=== PATIENT | female | born 1945 | race Caucasian/White ===

== ENCOUNTER 2022-12-17 23:57 | Inpatient (IN) | payer MEDICARE, MEDICAID ==
[~2022-12-17] VITALS: Ht 152.4 cm; Wt 64.9 kg
[~2022-12-17 23:57] MED LIST: ASPI-1497 PO; FAMO-135 MT; GLIP10TA10 PO; LEVO-65 MT; METF-416 PO; METO5TAB86 MT; METR500T PO; PIOG45TA5 PO; SIMV-46 PO; TELM40TA7 PO
[2022-12-18] MEDS ORDERED: DEXT 10% WATER 1,000 ML IV ONE (00:30)
[2022-12-18 01:06] LABS: CLARITY URINE CLEAR (CLEAR); COLOR URINE YELLOW (YELLOW); KETONES URINE TRACE (NEGATIVE); LEUKOCYTE ESTERASE URINE TRACE (NEGATIVE); NITRITE URINE NEGATIVE (NEGATIVE); OCCULT BLOOD URINE 2+ (NEGATIVE); PH URINE 5.5 (4.5-8.0); PROTEIN URINE NEGATIVE (NEGATIVE); SPECIFIC GRAVITY URINE 1.009 (1.005-1.030); UROBILINOGEN URINE 0.2 E.U./dL (0.2-1.0)
[2022-12-18 01:08] LABS: BASOPHILS % 0.3 % (0.0-2.0); EOSINOPHILS % 4.3 % (0.0-5.0); HEMATOCRIT. 28.3 % (36.0-48.0); HEMOGLOBIN. 9.7 g/dL (12.0-16.0); MEAN CORPUSCULAR HEMOGLOBIN 28.9 pg (28.0-32.0); MEAN CORPUSCULAR VOLUME 84.1 fL (81.0-99.0); MEAN PLATELET VOLUME 6.5 fl (7.4-10.4); MONOCYTES % 11.1 % (2.0-8.0); NEUTROPHILS % 75.3 % (40.0-76.0); PLATELET 218 x1000/uL (130-400); RED BLOOD CELL COUNT 3.37 mill/uL (4.2-5.4); RED CELL DISTRIBUTION WIDTH 15.7 % (11.6-14.6)
[2022-12-18 01:14] LABS: CHLORIDE 91 mEq/L (98-107)
[2022-12-18] MEDS ORDERED: DEXTROSE 50% WATER 50ML SYRINGE IV PRN (05:00)
[2022-12-18] MEDS ORDERED: IPRATROPIUM/ALBUTEROL 0.5-3(2.5)MG/3ML NEB HHN PRN (05:00)
[2022-12-18] MEDS ORDERED: DOCUSATE SODIUM 100MG CAPSULE PO PRN (05:00)
[2022-12-18] MEDS ORDERED: CLONIDINE 0.1MG TABLET PO PRN (05:00)
[2022-12-18] MEDS ORDERED: MAGNESIUM/ALUMINUM HYDROXIDE/SIMETHICONE 30ML UDC PO PRN (05:00)
[2022-12-18] MEDS ORDERED: GUAIFENESIN 200MG/10ML SUGAR FREE UDC PO PRN (05:00)
[2022-12-18] MEDS ORDERED: SODIUM CHLORIDE 0.9% 500 ML IV NR (06:00)
[2022-12-18] MEDS: INSULIN LISPRO 100 UNITS/ML SUBCUT SCH ×4 (08:20→20:18)
[2022-12-18 08:29] LABS: SODIUM URINE RANDOM 53 mEq/L
[2022-12-18] MEDS: MEGESTROL ACETATE 20MG TABLET PO SCH (09:00)
[2022-12-18] MEDS: PANTOPRAZOLE SODIUM 40 MG/VIAL IV SCH (09:00)
[2022-12-18] MEDS ORDERED: MEGESTROL ACETATE 400 MG/10 ML UDC PO SCH (09:00)
[2022-12-18] MEDS: BLOOD SUGAR DIAGNOSTIC STRIP TEST SCH ×4 (09:20→20:19)
[2022-12-18 16:51] VITALS: BP 131/70; PULSE 110; RESP 18; TEMP 98.1
[2022-12-18 20:00] VITALS: BP 102/59; PULSE 101; RESP 17; TEMP 97.2
[2022-12-19] VITALS: BP 107/52; PULSE 89; RESP 17; TEMP 97.1
[2022-12-19 06:09] LABS: BASOPHILS % 0.2 % (0.0-2.0); EOSINOPHILS % 3.3 % (0.0-5.0); HEMATOCRIT. 33.2 % (36.0-48.0); HEMOGLOBIN. 11.3 g/dL (12.0-16.0); LYMPHOCYTES % 9.1 % (20.0-50.0); MEAN CORPUSCULAR HEMOGLOBIN 28.5 pg (28.0-32.0); MEAN PLATELET VOLUME 6.2 fl (7.4-10.4); MONOCYTES % 10.2 % (2.0-8.0); NEUTROPHILS % 77.2 % (40.0-76.0); PLATELET 256 x1000/uL (130-400); RED BLOOD CELL COUNT 3.95 mill/uL (4.2-5.4); RED CELL DISTRIBUTION WIDTH 15.9 % (11.6-14.6)
[2022-12-19 07:01] LABS: CHLORIDE 97 mEq/L (98-107)
[2022-12-19 07:18] LABS: T4 FREE 1.46 ng/dL (0.76-1.46)
[2022-12-19 07:31] VITALS: BP 110/60; PULSE 87; RESP 17; TEMP 97.5
[2022-12-19 08:00] VITALS: BP 106/61; PULSE 65; RESP 18; TEMP 97.5
[2022-12-19] MEDS: MEGESTROL ACETATE 20MG TABLET PO SCH (09:00)
[2022-12-19] MEDS: BLOOD SUGAR DIAGNOSTIC STRIP TEST SCH ×4 (09:00→21:20)
[2022-12-19] MEDS: PANTOPRAZOLE SODIUM 40 MG/VIAL IV SCH (09:05)
[2022-12-19] MEDS: SODIUM CHLORIDE 0.9% 1,000 ML IV SCH ×2 (09:30→22:50)
[2022-12-19 12:00] VITALS: BP 118/65; PULSE 68; RESP 18; TEMP 97.1
[2022-12-19 16:00] VITALS: BP 110/67; PULSE 71; RESP 18; TEMP 97.6
[2022-12-19 20:00] VITALS: BP 94/58; PULSE 119; RESP 19; TEMP 97.7
[2022-12-19] MEDS: TRAMADOL 50MG TABLET PO PRN (20:36)
[2022-12-19] MEDS: ACETAMINOPHEN 325MG TABLET PO PRN (21:15)
[2022-12-19] MEDS: INSULIN LISPRO 100 UNITS/ML SUBCUT SCH (21:18)
[2022-12-20] MEDS: TRAMADOL 50MG TABLET PO PRN ×3 (05:51→21:03)
[2022-12-20] MEDS: BLOOD SUGAR DIAGNOSTIC STRIP TEST SCH ×4 (06:03→21:32)
[2022-12-20] MEDS: INSULIN LISPRO 100 UNITS/ML SUBCUT SCH ×4 (06:03→21:32)
[2022-12-20 06:27] LABS: BASOPHILS % 0.3 % (0.0-2.0); EOSINOPHILS % 6.4 % (0.0-5.0); HEMATOCRIT. 29.6 % (36.0-48.0); HEMOGLOBIN. 10.2 g/dL (12.0-16.0); LYMPHOCYTES % 12.1 % (20.0-50.0); MEAN CORPUSCULAR HEMOGLOBIN 29.1 pg (28.0-32.0); MEAN CORPUSCULAR VOLUME 84.2 fL (81.0-99.0); MEAN PLATELET VOLUME 6.4 fl (7.4-10.4); MONOCYTES % 11.1 % (2.0-8.0); NEUTROPHILS % 70.1 % (40.0-76.0); PLATELET 256 x1000/uL (130-400); RED BLOOD CELL COUNT 3.52 mill/uL (4.2-5.4); RED CELL DISTRIBUTION WIDTH 16.1 % (11.6-14.6)
[2022-12-20 06:49] LABS: CHLORIDE 99 mEq/L (98-107)
[2022-12-20 08:00] VITALS: BP 120/55; PULSE 88; RESP 18; TEMP 97.1
[2022-12-20] MEDS: ENOXAPARIN 40MG/0.4ML SYR SUBCUT SCH (08:55)
[2022-12-20] MEDS: MEGESTROL ACETATE 400 MG/10 ML UDC PO SCH (11:00)
[2022-12-20 12:00] VITALS: BP 110/65; PULSE 72; RESP 19; TEMP 97.4
[2022-12-20] MEDS: SODIUM CHLORIDE 0.9% 1,000 ML IV SCH (12:10)
[2022-12-20] MEDS ORDERED: MAGNESIUM 4 G PREMIX 100 ML IV NR (12:30)
[2022-12-20] MEDS: FAMOTIDINE 20MG/2ML VIAL IV SCH (12:45)
[2022-12-20 16:00] VITALS: BP 103/61; PULSE 76; RESP 18; TEMP 97.1
[2022-12-20] MEDS: ONDANSETRON HCL 4MG/2ML INJ IV PRN ×2 (18:15→21:32)
[2022-12-20] MEDS: ACETAMINOPHEN 325MG TABLET PO PRN (18:27)
[2022-12-20 20:00] VITALS: BP 120/76; PULSE 78; RESP 18; TEMP 97.9
[2022-12-21] VITALS: BP 115/70; PULSE 73; RESP 18; TEMP 97.5
[2022-12-21] MEDS: SODIUM CHLORIDE 0.9% 1,000 ML IV SCH (00:45)
[2022-12-21 04:00] VITALS: BP 121/80; PULSE 75; RESP 18; TEMP 97.7
[2022-12-21] MEDS: INSULIN LISPRO 100 UNITS/ML SUBCUT SCH (07:00)
[2022-12-21] MEDS: BLOOD SUGAR DIAGNOSTIC STRIP TEST SCH (07:00)
[2022-12-21 08:00] VITALS: BP 118/66; PULSE 90; RESP 16; TEMP 98.8
[2022-12-21] MEDS: ENOXAPARIN 40MG/0.4ML SYR SUBCUT SCH (08:22)
[2022-12-21] MEDS: FAMOTIDINE 20MG/2ML VIAL IV SCH (08:22)
[2022-12-21] MEDS: MEGESTROL ACETATE 400 MG/10 ML UDC PO SCH (08:22)
[2022-12-21 10:24] VITALS: BP 118/66; PULSE 90; TEMP 98.8; O2SAT 96
[2022-12-21] MEDS ORDERED: NALOXONE HCL 0.4MG/ML VIAL IV PRN (11:45)
== END 2022-12-21 11:20 | disposition home or self-care (01) | DRG 637 ==
LOC: ER 23:57 → 4WST 12-18 04:14
PROVIDERS: ADMIT Hospitalist; ATTEND Hospitalist
DX: E11.649 Type 2 diabetes mellitus with hypoglycemia without coma (principal); G92.8 Other toxic encephalopathy; E87.1 Hypo-osmolality and hyponatremia; N39.0 Urinary tract infection, site not specified; E11.65 Type 2 diabetes mellitus with hyperglycemia; I11.9 Hypertensive heart disease without heart failure; D64.9 Anemia, unspecified; E78.5 Hyperlipidemia, unspecified; E83.42 Hypomagnesemia; E88.09 Other disorders of plasma-protein metabolism, not elsewhere classified; E87.8 Other disorders of electrolyte and fluid balance, not elsewhere classified; Z85.42 Personal history of malignant neoplasm of other parts of uterus; Z79.4 Long term (current) use of insulin
CPT/HCPCS: 36415; 71045; 80053; 81003; 82962; 83036; 83735; 83930; 83935; 84295; 84300; 84439; 84443; 84484; 85025; 93005; 99285; C1893; C9113; J1650; J1815; J2405; J3475; J3490; J7030

== ENCOUNTER 2024-02-26 07:39 | Inpatient (IN) | payer MEDICARE, MEDICAID ==
[~2024-02-26] VITALS: Ht 157.5 cm; Wt 56.7 kg
[2024-02-26] MEDS ORDERED: SODIUM CHLORIDE 0.9% 1000ML BAG (SEPSIS BOLUS) IV ONE (08:00)
[2024-02-26 08:41] LABS: HEMATOCRIT. 29.5 % (36.0-48.0); HEMOGLOBIN. 9.8 g/dL (12.0-16.0); MEAN CORPUSCULAR HEMOGLOBIN 29.2 pg (28.0-32.0); MEAN CORPUSCULAR HGB CONC 33.2 g/dL (31.0-37.0); MEAN CORPUSCULAR VOLUME 87.9 fL (81.0-99.0); MEAN PLATELET VOLUME 6.3 fl (7.4-10.4); PLATELET 240 x1000/uL (130-400); RED BLOOD CELL COUNT 3.36 mill/uL (4.2-5.4); RED CELL DISTRIBUTION WIDTH 16.3 % (11.6-14.6); WHITE BLOOD COUNT 4.6 x1000/uL (4.5-11.0)
[2024-02-26 08:49] LABS: DIFFERENTIAL COMMENT 1
[2024-02-26 08:50] LABS: CHLORIDE 99 mEq/L (98-107); POTASSIUM 4.2 mEq/L (3.5-5.1); SODIUM 129 mEq/L (136-145)
[2024-02-26 08:51] LABS: CALCIUM 8.8 mg/dL (8.7-10.4); CARBON DIOXIDE 25 mEq/L (21-32); INR 1.1; PROTHROMBIN TIME 11.7 sec (9.6-11.0)
[2024-02-26 08:56] LABS: CREATININE 0.6 mg/dL (0.6-1.0); UREA NITROGEN BLOOD 8 mg/dL (9-23)
[2024-02-26 08:57] LABS: TROPONIN I HIGH SENSITIVITY 4 ng/L (3.0-34)
[2024-02-26] MEDS: SODIUM CHLORIDE 0.9% 1,500 ML IV SCH (09:03)
[2024-02-26 09:12] LABS: GLUCOSE 36 mg/dL (70-105)
[2024-02-26] MEDS ORDERED: SODIUM CHLORIDE 0.9% 1,000 ML IV ONE (09:15)
[2024-02-26] MEDS: DEXTROSE 50% WATER 50ML SYRINGE IV NR (09:18)
[2024-02-26 10:35] LABS: ANISOCYTOSIS 1+; PLATELET ESTIMATE NORMAL
[2024-02-26 11:11] LABS: CLARITY URINE CLEAR (CLEAR); COLOR URINE YELLOW (YELLOW); GLUCOSE URINE TRACE (NEGATIVE); KETONES URINE NEGATIVE (NEGATIVE); LEUKOCYTE ESTERASE URINE NEGATIVE (NEGATIVE); NITRITE URINE NEGATIVE (NEGATIVE); OCCULT BLOOD URINE NEGATIVE (NEGATIVE); PH URINE 6.5 (4.5-8.0); PROTEIN URINE NEGATIVE (NEGATIVE); SPECIFIC GRAVITY URINE 1.006 (1.005-1.030); UROBILINOGEN URINE 0.2 E.U./dL (0.2-1.0)
[2024-02-26 11:30] LABS: BACTERIA URINE FEW; RBC URINE 0-2 /hpf (0-2); SQUAMOUS EPITHELIAL CELL URINE 1+ /lpf (RARE/1+); WBC URINE 0-2 /hpf (0-2); YEAST URINE NONE SEEN
[2024-02-26] MEDS ORDERED: DIPHENHYDRAMINE 50MG/ML VIAL IV PRN (11:45)
[2024-02-26] MEDS ORDERED: CLONIDINE 0.1MG TABLET PO PRN (11:45)
[2024-02-26] MEDS ORDERED: IPRATROPIUM/ALBUTEROL 0.5-3(2.5)MG/3ML NEB HHN PRN (11:45)
[2024-02-26] MEDS ORDERED: ONDANSETRON HCL 4MG/2ML INJ IV PRN (11:45)
[2024-02-26 12:16] VITALS: BP 145/73; PULSE 100; RESP 18; TEMP 36.61404; O2SAT 100
[2024-02-26 12:44] VITALS: BP 145/73; PULSE 73; RESP 18; TEMP 36.6404
[2024-02-26] MEDS: BLOOD SUGAR DIAGNOSTIC STRIP TEST SCH (13:07)
[2024-02-26 16:00] VITALS: BP 125/75; PULSE 97; RESP 20; TEMP 36.55848; O2SAT 100
[2024-02-26] MEDS: CEFTRIAXONE 1GM/50ML 50 ML IV SCH (16:43)
[2024-02-26 20:00] VITALS: BP 131/70; PULSE 111; RESP 19; TEMP 36.9474; O2SAT 99
[2024-02-27] VITALS (7 sets, daily range): BP systolic 109–142; BP diastolic 53–81; PULSE 82–107; RESP 18–20; TEMP 36.33624–36.6696; O2SAT 93–100
[2024-02-27 06:47] LABS: CARBON DIOXIDE 27 mEq/L (21-32); CHLORIDE 100 mEq/L (98-107); POTASSIUM 4.4 mEq/L (3.5-5.1); SODIUM 131 mEq/L (136-145)
[2024-02-27] MEDS: ACETAMINOPHEN 325MG TABLET PO PRN (06:47)
[2024-02-27 06:48] LABS: CALCIUM 8.7 mg/dL (8.7-10.4)
[2024-02-27 06:53] LABS: CREATININE 0.7 mg/dL (0.6-1.0); GLUCOSE 112 mg/dL (70-105); UREA NITROGEN BLOOD 7 mg/dL (9-23)
[2024-02-27 07:01] LABS: HEMATOCRIT. 30.8 % (36.0-48.0); HEMOGLOBIN. 10.1 g/dL (12.0-16.0); MEAN CORPUSCULAR HEMOGLOBIN 28.9 pg (28.0-32.0); MEAN CORPUSCULAR HGB CONC 32.9 g/dL (31.0-37.0); MEAN CORPUSCULAR VOLUME 87.8 fL (81.0-99.0); MEAN PLATELET VOLUME 6.6 fl (7.4-10.4); PLATELET 250 x1000/uL (130-400); RED CELL DISTRIBUTION WIDTH 16.7 % (11.6-14.6); WHITE BLOOD COUNT 3.6 x1000/uL (4.5-11.0)
[2024-02-27 07:44] LABS: DIFFERENTIAL COMMENT 1
[2024-02-27] MEDS ORDERED: DEXTROSE 50% WATER 50ML SYRINGE IV PRN (17:00)
[2024-02-27] MEDS: BLOOD SUGAR DIAGNOSTIC STRIP TEST SCH (17:58)
[2024-02-27] MEDS: INSULIN LISPRO 100 UNITS/ML SUBCUT SCH (17:58)
[2024-02-27 19:31] LABS: PLATELET ESTIMATE NORMAL
[2024-02-28] VITALS: BP 96/51; PULSE 88; RESP 18; TEMP 36.61404; O2SAT 100
[2024-02-28 04:00] VITALS: BP 92/54; PULSE 92; RESP 18; TEMP 36.55848; O2SAT 100
[2024-02-28 08:00] VITALS: BP 108/72; PULSE 91; RESP 22; TEMP 37.00296; O2SAT 97
[2024-02-28 12:00] VITALS: BP 150/78; PULSE 92; RESP 18; TEMP 36.44736; O2SAT 95
[2024-02-28 15:52] VITALS: BP 144/78; PULSE 92; TEMP 98; O2SAT 98
[2024-02-28 16:00] VITALS: BP 144/82; PULSE 96; RESP 18; TEMP 36.6696; TEMP 36.66960; O2SAT 98
== END 2024-02-28 16:58 | disposition home or self-care (01) | DRG 871 ==
LOC: ER 07:39 → 7WST 08:53
PROVIDERS: ADMIT Internal Medicine; ATTEND Internal Medicine
DX: A41.9 Sepsis, unspecified organism (principal); G93.41 Metabolic encephalopathy; E87.1 Hypo-osmolality and hyponatremia; J98.11 Atelectasis; D64.9 Anemia, unspecified; E11.649 Type 2 diabetes mellitus with hypoglycemia without coma; I10 Essential (primary) hypertension; Z85.028 Personal history of other malignant neoplasm of stomach
CPT/HCPCS: 36415; 71045; 80048; 81003; 82962; 83036; 83605; 84145; 84484; 85025; 93005; 93970; 99285; J0696; J1815; J7030